=== PATIENT | male | born 1990 | race Native Hawaiian/Other Pacific Islander ===

== ENCOUNTER 2020-01-02 13:07 | Emergency (ER) | payer OTHER ==
[~2020-01-02] VITALS: Ht 185.4 cm; Wt 181.8 kg
[2020-01-02] MEDS ORDERED: LIDOCAINE 1% 10 ML VIAL INJ ONE (15:00)
[2020-01-02] MEDS ORDERED: PERTUSS(ACELL),DIPH,TET VAC/PF 0.5 ML VIAL IM ONE (15:45)
[2020-01-02] MEDS ORDERED: LIDOCAINE 1%/EPI 1:200,000/PF 10 ML VIAL INJ ONE (16:00)
[2020-01-02 17:31] LABS: COVID AG,FIA SOURCE NASOPHARYNGEAL
[2020-01-02 18:32] VITALS: BP 154/76
== END 2020-01-02 19:08 | disposition short-term general hospital (02) ==
LOC: EMS 13:14
DX: S61.412A Laceration without foreign body of left hand, initial encounter (principal); Z20.828 Contact with and (suspected) exposure to other viral communicable diseases; F17.210 Nicotine dependence, cigarettes, uncomplicated; W26.0XXA Contact with knife, initial encounter; Y93.89 Activity, other specified; Y92.89 Other specified places as the place of occurrence of the external cause; Y99.8 Other external cause status
CPT/HCPCS: 12042; 87426; 90471; 90715; 99285; J3490 ×2